=== PATIENT | female | born 1975 | race Caucasian/White ===

== ENCOUNTER 2017-10-14 23:46 | Emergency (ER) | payer OTHER ==
[2017-10-15 01:06] VITALS: BP 163/95; PULSE 89; TEMP 98.1; BMI 25.8
--- NOTE | 2017-10-15 02:06 | PDOC ---
History of Present Illness - General Chief Complaint: Pain, Acute Stated Complaint: SIDE PAIN Time Seen by Provider: 10/15/17 01:42 - History of Present Illness Initial Comments: 10/15/17 02:00 Pt is a pleasant 42F who presents to ED with severe L sided chest pain. Pt states she developed bronchitis and cough 2wk ago and believes she may have fractured a rib while coughing. Pain is related to breathing and is tender to palpation and torso movement. Pain is unrelated to activity. Pt has taken advil and aleve with some relief. Past History - Past Medical History Allergies/Adverse Reactions: Allergies Allergy/AdvReac Type Severity Reaction Status Date / Time No Known Allergies Allergy Verified 10/15/17 01:04 Home Medications: Ambulatory Orders Acetaminophen W/ Codeine #3 [Tylenol # 3 -] 1 tab PO Q8H #20 tablet MDD 60 10/15 Acetaminophen W/ Codeine Liq [Tylenol W/Codeine Oral Solution -] 5 ml PO Q6H PRN #120 ml MDD 20 ml 10/15/17 RX: Albuterol Sulfate Inhaler - [Ventolin HFA Inhaler -] 1 puff IH PRN PRN #1 inhaler 10/15/17 RX: Azithromycin [Zithromax 250mg Tablets -] 250 mg PO UTDICT #6 tab 10/15/17 RX: Prednisone [Prednisone 50 MG TABLETS] 50 mg PO DAILY #4 tablet 10/15/17 - Suicide/Smoking/Psychosocial Hx Smoking History: Never smoked Have you smoked in the past 12 months: No Information on smoking cessation initiated: No Hx Alcohol Use: No Drug/Substance Use Hx: No Review of Systems - Review of Systems Able to Perform ROS?: Yes Is the patient limited Italian proficient: No Constitutional: Yes: Symptoms Reported. No: Chills, Diaphoresis, Fever, Malaise HEENTM: Yes: Symptoms Reported. No: Blurred Vision, Nose Congestion, Throat Pain Respiratory: Yes: Symptoms reported, Cough, Shortness of Breath, Wheezing Cardiac (ROS): Yes: Symptoms Reported, Chest Pain (Left chest) ABD/GI: Yes: Symptoms Reported. No: Abdominal Distended, Constipated, Diarrhea , Difficulty Swallowing, Nausea, Poor Appetite, Vomiting : Yes: Symptoms Reported. No: Burning, Dysuria Musculoskeletal: Yes: Symptoms Reported, See HPI *Physical Exam - Vital Signs Last Vital Signs Temp Pulse Resp BP Pulse Ox 98.1 F 89 19 163/95 98 10/15/17 00:10 10/15/17 00:10 10/15/17 00:10 10/15/17 00:10 10/15/17 00:10 - Physical Exam General Appearance: Yes: Appropriately Dressed, Apparent Distress (pt in significant pain) HEENT: positive: EOMI, BINTA Neck: positive: Trachea midline, Supple Respiratory/Chest: positive: Chest Tender (Left chest), Crackles (bibasilar. Pt not able to cough), Wheezing (diffuse). negative: Lungs Clear, Normal Breath Sounds, Accessory Muscle Use, Labored Respiration Cardiovascular: positive: Regular Rhythm, Regular Rate, S1, S2. negative: Edema , JVD, Murmur Vascular Pulses: Dorsalis-Pedis (R): 2+, Doralis-Pedis (L): 2+ Gastrointestinal/Abdominal: positive: Normal Bowel Sounds, Flat, Soft Neurologic: positive: combination saw operator II-XII NML intact, Normal Response ED Treatment Course - LABORATORY CBC & Chemistry Diagram: 10/15/17 02:30 10/15/17 02:30 Medical Decision Making - Medical Decision Making 10/15/17 02:19 Pt is a 42F with PMH HTN who presented to ED with left sided reproducible chest pain, which is exquisitely tender to palpation. Pt also has cough for 2 weeks and diffuse wheezing on lung exam. -L rib series -CBC, CMP, Tn -Duo Nebs -Solumedrol -Tylenol w/ codeine -Robitussin *DC/Admit/Observation/Transfer Diagnosis at time of Disposition: COPD (chronic obstructive pulmonary disease) Qualifiers: COPD type: COPD with acute exacerbation Qualified Code(s): J44.1 - Chronic obstructive pulmonary disease with (acute) exacerbation - Discharge Dispostion Disposition: HOME Condition at time of disposition: Fair Admit: No - Prescriptions Prescriptions: Acetaminophen W/ Codeine #3 [Tylenol # 3 -] 1 tab PO Q8H #20 tablet MDD 60 Acetaminophen W/ Codeine Liq [Tylenol W/Codeine Oral Solution -] 5 ml PO Q6H PRN #120 ml MDD 20 ml PRN Reason: Pain RX: Albuterol Sulfate Inhaler - [Ventolin HFA Inhaler -] 1 puff IH PRN PRN #1 inhaler PRN Reason: Asthma RX: Azithromycin [Zithromax 250mg Tablets -] 250 mg PO UTDICT #6 tab RX: Prednisone [Prednisone 50 MG TABLETS] 50 mg PO DAILY #4 tablet - Referrals Referrals: STAFF,NOT ON [Primary Care Provider] - - Patient Instructions Printed Discharge Instructions: DI for Chronic Obstructive Pulmonary Disease, DI for Muscle Strain Additional Instructions: Please make sure you take all your prescription medications as directed. Please make sure you follow up with your primary doctor. If your symptoms get worse or if you develop new symptoms please return to the emergency department immediately. - Post Discharge Activity
[2017-10-15] MEDS ORDERED: guaiFENesin 200 MG/10 ML 10 ML UNIT-DOSE CUPS PO PRN (02:08)
[2017-10-15] MEDS ORDERED: ACETAMINOPHEN WITH CODEINE 300MG/30MG TABLET PO ONE ×2 (02:09→05:06)
[2017-10-15] MEDS ORDERED: methylPREDNISolone NA SUCC 125 MG/2 ML VIAL IVPUSH ONE (02:09)
[2017-10-15] MEDS ORDERED: ACETAMINOPHEN WITH CODEINE 300MG/30MG TABLET ONE ×2 (02:13→05:08)
[2017-10-15] MEDS ORDERED: methylPREDNISolone NA SUCC 125 MG/2 ML VIAL ONE (02:14)
[2017-10-15] MEDS ORDERED: ALBUTEROL SO4 2.5/IPRATROPIUM 0.5 INH SOL 3 ML VIAL.NEB. NEB ONE (02:14)
[2017-10-15 02:33] LABS: BASO # 0.1 # (0.1-1); BASO % 1.2 % (0-2.0); EOS # 0.2 # (0-4.5); MCH 30.8 pg (25.7-33.7); MCHC 32.7 g/dl (32.0-36.0); MEAN CELL VOLUME 94.1 fl (80-96); MEAN PLT VOLUME 7.9 fl (7.5-11.1); MONO # 0.5 # (3.8-10.2); NEUT # 5.4 # (42.8-82.8); NEUT % 65.6 % (42.8-82.8); PLATELET COUNT 151 K/MM3 (134-434); RDW 19.3 % (11.6-15.6); WHITE BLOOD COUNT 8.2 K/mm3 (4.0-10.0)
[2017-10-15] MEDS: ALBUTEROL SO4 2.5/IPRATROPIUM 0.5 INH SOL 3 ML VIAL.NEB. NEB SCH ×3 (02:40→03:11)
[2017-10-15 03:12] LABS: ALBUMIN 4.1 g/dl (3.4-5.0); ANION GAP 13 (8-16); BILIRUBIN,TOTAL 1.1 mg/dL (0.2-1.0); CALCIUM 10.1 mg/dL (8.5-10.1); CO2 20 mmol/L (21-32); CREATININE 0.8 mg/dL (0.55-1.02); GLUCOSE,RANDOM 134 mg/dL (74-106); SGOT/AST 71 U/L (15-37); SGPT/ALT 36 U/L (12-78); TOT PROT 8.5 g/dl (6.4-8.2)
[2017-10-15 03:13] LABS: ALK PHOS 120 U/L (45-117)
[2017-10-15] MEDS ORDERED: AZITHROMYCIN 250 MG TABLET PO ONE (04:28)
--- NOTE | 2017-10-15 04:29 | PDOC ---
Attending Attestation - Resident Resident Name: Rakesh Flores - ED Attending Attestation I have performed the following: I have examined & evaluated the patient, The case was reviewed & discussed with the resident, I agree w/resident's findings & plan, Exceptions are as noted - HPI HPI: 10/15/17 04:24 42 F with HTN presenting to ER with L chest pain that started several days ago. Pt states that she was diagnosed with bronchitis about 3 weeks ago. She was initially treated with a course of abx (does not recall which one), but she states that she has had persistent cough. Pt states that due to her severe coughing fits, she began to experience pain in her left chest wall. She states that she felt a "popping" sensation. Now has severe pain with coughing and moving in certain positions. Denies any SOB or significant pain when she is not coughing. Pt is group home smoker. Never been diagnosed with asthma or COPD. - Physicial Exam PE: 10/15/17 04:27 "GENERAL: Awake, alert, and fully oriented, in no acute distress HEAD: No signs of trauma EYES: PERRLA, EOMI, sclera anicteric, conjunctiva clear ENT: Auricles normal inspection, hearing grossly normal, nares patent, oropharynx clear without exudates. Moist mucosa NECK: Nontender, no stepoffs, Normal ROM, supple, no lymphadenopathy, JVD, or masses LUNGS: +Mild expiratory wheezes, no rales/rhonchi CHEST: L chest wall TTP, no crepitus HEART: Regular rate and rhythm, normal S1 and S2, no murmurs, rubs or gallops ABDOMEN: Soft, nontender, normoactive bowel sounds. No guarding, no rebound. No masses EXTREMITIES: Normal range of motion, no edema. No clubbing or cyanosis. No cords, erythema, or tenderness NEUROLOGICAL: Cranial nerves II through XII intact. 5/5 strength and sensation in all extremities, Normal speech, normal gait SKIN: Warm, Dry, normal turgor, no rashes or lesions noted. " - Medical Decision Making 10/15/17 04:28 42 F with L chest wall pain and tenderness. Likely msk 2/2 coughing. Pain is very reproducible. Given wheezing on exam, will tx as COPD flare. - Labs, trop - EKG - CXR, rib XR - Steroids, nebs, azithro 10/15/17 04:29 IOC read of XR negative for PNA, negative for rib fx Pt to be DC'ed with albuterol pump, prednisone course, and Z-pack.
[2017-10-15] MEDS ORDERED: AZITHROMYCIN 250 MG TABLET ONE ×2 (05:04→05:08)
== END 2017-10-15 05:22 | disposition home or self-care (01) ==
LOC: JER 23:46 → SUPCPDRO 23:46 → JER 10-15 05:22
PROC: 3E0F7GC Introduction of Other Therapeutic Substance into Respiratory Tract, Via Natural or Artificial Opening (ICD-10-PCS; principal; 2017-10-14)
PROC: 3E0333Z Introduction of Anti-inflammatory into Peripheral Vein, Percutaneous Approach (ICD-10-PCS; 2017-10-14)
DX: J44.1 Chronic obstructive pulmonary disease with (acute) exacerbation (principal); I10 Essential (primary) hypertension
CPT/HCPCS: 36415; 71101-TC; 80053; 84484; 85025; 99283-25